=== PATIENT | male | born 1990 | race Caucasian/White ===

== ENCOUNTER 2020-10-21 22:58 | Emergency (ER) | payer OTHER ==
[~2020-10-21] VITALS: Ht 172.7 cm; Wt 81.7 kg
[2020-10-21] MEDS ORDERED: OMEPRAZOLE20 MG PO (23:24)
[2020-10-21] MEDS ORDERED: NAPROXEN375 MG PO (23:24)
== END 2020-10-22 01:15 | disposition home or self-care (01) ==
LOC: ED 22:58
DX: S80.11XA Contusion of right lower leg, initial encounter (principal); W50.0XXA Accidental hit or strike by another person, initial encounter; Z87.891 Personal history of nicotine dependence; Z79.899 Other long term (current) drug therapy
CPT/HCPCS: 73560; 73590; 99283-25

== ENCOUNTER 2020-12-01 16:12 | Emergency (ER) | payer OTHER ==
[~2020-12-01] VITALS: Ht 172.7 cm; Wt 84.4 kg
[~2020-12-01 16:12] MED LIST: NAPROXEN375 MG PO; OMEPRAZOLE20 MG PO
== END 2020-12-01 18:00 | disposition home or self-care (01) ==
LOC: ED 16:12
DX: S62.622A Displaced fracture of middle phalanx of right middle finger, initial encounter for closed fracture (principal); W22.8XXA Striking against or struck by other objects, initial encounter; Z87.891 Personal history of nicotine dependence
CPT/HCPCS: 73140; 99283-25

== ENCOUNTER 2025-06-27 08:00 | Emergency (ER) | payer OTHER ==
[~2025-06-27] VITALS: Ht 172.7 cm; Wt 80.5 kg
== END 2025-06-27 10:50 | disposition home or self-care (01) ==
LOC: ED 08:00
DX: S02.842A Fracture of lateral orbital wall, left side, initial encounter for closed fracture (principal); S02.32XA Fracture of orbital floor, left side, initial encounter for closed fracture; Z87.891 Personal history of nicotine dependence; Y04.8XXA Assault by other bodily force, initial encounter
CPT/HCPCS: 70486; 99284-25